=== PATIENT | male | born 1965 | race Caucasian/White ===

== ENCOUNTER 2021-07-16 11:41 | Inpatient (IN) | payer MEDICARE ==
[~2021-07-16 11:41] MED LIST: Iopamidol-370 76% 500 ML 1 ML ONE
[2021-07-16 13:04] LABS: #Lymphocytes 0.9 thou/uL (1.20-3.40); #Monocytes 0.4 thou/uL (0.11-0.59); #Neutrophils 11.4 thou/uL (1.40-6.50); %Basophils 0.1 % (0.0-1.0); %Eosinophils 0.3 % (0.0-10.0); %Lymphocytes 6.6 % (21.0-51.0); %Monocytes 3.3 % (0.0-10.0); %Neutrophils 89.6 % (42.0-75.0); Hemoglobin 9.8 g/dL (14.0-18.0); Mean Corpuscular HGB CONC 33.6 g/dL (32.0-36.0); Mean Corpuscular Hemoglobin 27.5 pg (27.0-31.0); Mean Corpuscular Volume 81.9 fL (78.0-98.0); Mean Platelet Volume 7.5 fL (7.4-10.4); Platelet Count 366 thou/uL (130-400); RBC Distribution Width 17.8 % (11.5-14.5); Red Blood Cell (RBC) Count 3.55 mill/uL (4.70-6.10); White Blood Cell (WBC) Count 12.7 thou/uL (4.8-10.8)
[2021-07-16 13:07] LABS: Actual Bicarbonate (HCO3v) 21 mEq/L (22-28); Analyzer IN Cardio ER; Base Excess -1.9 mEq/L (-2.0 to +3.0); Chloride (VBG) 93 mmol/L (98-106); Potassium (VBG) 4.66 mmol/L (3.70-5.30); Sodium 125.2 mmol/L (133-146); pH (venous) 7.46 (7.32-7.43)
[2021-07-16 13:33] LABS: ALT (SGPT) 19 U/L (8-55); AST (SGOT) 22 U/L (5-34); Albumin 3.1 g/dL (3.5-5.0); Alkaline Phosphatase 164 U/L (40-110); Anion Gap 18 mmol/L (10-20); BUN (Urea Nitrogen) 38 mg/dL (8.4-25.7); Bilirubin, Total 0.4 mg/dL (0.2-1.2); CK (CPK) 95 U/L (30-200); Calc. Creatinine Clearance 0 mL/min (70-130); Calcium 8.1 mg/dL (7.8-10.44); Carbon Dioxide 22 mmol/L (22-29); Chloride 93 mmol/L (98-107); Potassium 5.1 mmol/L (3.5-5.1); Protein, Total 6.1 g/dL (6.0-8.3); Sodium 128 mmol/L (136-145)
[2021-07-16 13:43] LABS: Glucose 756 mg/dL (70-105)
[2021-07-16] MEDS ORDERED: HumaLOG 300 UNITS/3 ML VIAL ONE (14:02)
[2021-07-16 14:13] LABS: Bacteria/HPF None Seen HPF (None Seen); Bilirubin Negative (Negative); Blood, Urine 1+ (Negative); Clarity Clear (Clear); Glucose, Urine (Dipstick) Greater than 1000 mg/dL (Negative); Ketone, Urine Negative (Negative); Leukocyte Negative Leu/uL (Negative); Nitrite Negative (Negative); Protein, Urine (Dipstick) 300 mg/dL (Neg-Trace); RBC/HPF 0-3 HPF (0-3); Specific Gravity, Urine 1.022 (1.002-1.036); Squamous Epithelial 0-3 HPF (0-3); Urobilinogen Normal mg/dL (Less than 2); pH, Urine 6.5 (5.0-9.0)
[2021-07-16 14:18] LABS: Amphetamine Not Detected (NotDetected); Barbiturates Screen Not Detected (NotDetected); Benzodiazepine Screen Not Detected (NotDetected); Cocaine Metabolite Screen Not Detected (NotDetected); Methadone Not Detected (NotDetected); Methamphetamine Not Detected (NotDetected); Opiate Screen Not Detected (NotDetected); Oxycodone Screen Not Detected (NotDetected); Phencyclidine (PCP) Not Detected (NotDetected); THC/Cannabinoid Screen Not Detected (NotDetected); Tricyclic Screen Not Detected (NotDetected)
[2021-07-16] MEDS ORDERED: hydrALAZINE 20 MG/ML VIAL ONE (14:36)
[2021-07-16] MEDS ORDERED: Nitroglycerin 2% Ointment 1 INCH/1 GM Packet ONE (14:36)
[2021-07-16 14:38] LABS: INR-International Normal Ratio 1.2; PTT 28.1 sec (22.9-36.1)
[2021-07-16 14:46] LABS: Acetaminophen Less than 6.0 mcg/mL (10.0-30.0); Alcohol Less than 10 mg/dL (Less than 10); Salicylate Less than 8.0 mg/dL (15.0-30.0)
[2021-07-16] MEDS ORDERED: Dextrose 5% in Water 1,000 ML IV PRN (14:52)
[2021-07-16] MEDS ORDERED: Dextrose 50% Abboject 50 ML SYRINGE SLOW IVP PRN (14:52)
[2021-07-16] MEDS ORDERED: Metoclopramide HCl 10 MG/2 ML VIAL IVP PRN (14:57)
[2021-07-16] MEDS ORDERED: HUMULIN R 100 UNITS in Sodium Chloride 0.9% 100 ML IVPB SCH (15:00)
[2021-07-16] MEDS ORDERED: VANCOMYCIN 1.25 GM/250 ML BAG 1.25 GM in Premix Bag 1 BAG IVPB SCH (16:00)
[2021-07-16 16:21] LABS: SARS-CoV-2 NAA Rapid Test DETECTED (NotDetected)
[2021-07-16] MEDS ORDERED: Albuterol 200 PUFF (6.7GM INHALER) INH PRN (16:57)
[2021-07-16] MEDS: Cefepime 1 GM in Sodium Chloride 0.9% 100 ML IVPB SCH (17:01)
[2021-07-16] MEDS: Heparin 5,000 UNITS/ML VIAL SC SCH ×2 (17:11→23:18)
[2021-07-16 18:04] LABS: Anion Gap 19 mmol/L (10-20); BUN (Urea Nitrogen) 41 mg/dL (8.4-25.7); Calc. Creatinine Clearance 17 mL/min (70-130); Calcium 8.6 mg/dL (7.8-10.44); Carbon Dioxide 21 mmol/L (22-29); Chloride 94 mmol/L (98-107); Potassium 4.6 mmol/L (3.5-5.1); Sodium 129 mmol/L (136-145)
[2021-07-16 18:05] LABS: Lipase 83 U/L (8-78)
[2021-07-16 18:07] LABS: Glucose 765 mg/dL (70-105)
[2021-07-16] MEDS: hydrALAZINE 20 MG/ML VIAL SLOW IVP PRN (18:31)
[2021-07-16] MEDS ORDERED: Insulin Regular 300 UNITS/3 ML VIAL SC SCH (19:30)
[2021-07-16] MEDS: Acetaminophen 650 MG Suppository PR PRN ×2 (19:35→23:35)
[2021-07-16 20:34] LABS: Lactic Acid 2.2 mmol/L (0.5-2.2)
[2021-07-16 20:38] LABS: Anion Gap 16 mmol/L (10-20); BUN (Urea Nitrogen) 43 mg/dL (8.4-25.7); Calc. Creatinine Clearance 17 mL/min (70-130); Calcium 8.7 mg/dL (7.8-10.44); Carbon Dioxide 23 mmol/L (22-29); Chloride 95 mmol/L (98-107); Potassium 4.3 mmol/L (3.5-5.1); Sodium 130 mmol/L (136-145)
[2021-07-16 20:42] LABS: Troponin I 0.061 ng/mL (< 0.028)
[2021-07-16 20:44] LABS: Glucose 619 mg/dL (70-105)
[2021-07-16 21:20] LABS: Glucose 415 mg/dL (70-105)
[2021-07-16] MEDS: Nitroglycerin 2% Ointment 1 INCH/1 GM Packet TOP SCH (21:58)
[2021-07-16] MEDS: Pantoprazole 40 MG VIAL IVP SCH (23:18)
[2021-07-17 01:55] LABS: HBSAg Index 0.25 S/CO (0-0.99); Hep B Surf Ag Non-Reactive S/CO (NonReactive)
[2021-07-17] MEDS: hydrALAZINE 20 MG/ML VIAL SLOW IVP PRN ×2 (04:10→13:34)
[2021-07-17 05:05] LABS: Anisocytosis SLIGHT = 6-15 cells (100X) (0-5/hpf); Band 4 % (5-11); Elliptocytes SLIGHT = 2-5 cells (100X) (0-1/hpf); Hemoglobin 8.7 g/dL (14.0-18.0); Lymphocytes 6 % (21-51); MDiff Complete? YES; Mean Corpuscular HGB CONC 33.9 g/dL (32.0-36.0); Mean Corpuscular Hemoglobin 27.5 pg (27.0-31.0); Mean Corpuscular Volume 81.1 fL (78.0-98.0); Mean Platelet Volume 7.5 fL (7.4-10.4); Monocytes 2 % (0-10); Neutrophil 88 % (42-75); Platelet Count 330 thou/uL (130-400); Platelet Morphology Comment Appears Adequate; Polychromasia SLIGHT = 2-3 cells (100X) (0-2/hpf); RBC Distribution Width 17.8 % (11.5-14.5); Red Blood Cell (RBC) Count 3.15 mill/uL (4.70-6.10); Schistocytes SLIGHT = 2-5 cells (100X) (0-1/hpf); Target Cells SLIGHT = 2-5 cells (100X) (0-1/hpf); White Blood Cell (WBC) Count 11.8 thou/uL (4.8-10.8)
[2021-07-17 05:08] LABS: Anion Gap 16 mmol/L (10-20); BUN (Urea Nitrogen) 27 mg/dL (8.4-25.7); Calc. Creatinine Clearance 22 mL/min (70-130); Calcium 8.9 mg/dL (7.8-10.44); Carbon Dioxide 26 mmol/L (22-29); Chloride 97 mmol/L (98-107); Glucose 146 mg/dL (70-105); Phosphorus 2.6 mg/dL (2.3-4.7); Potassium 3.4 mmol/L (3.5-5.1); Sodium 136 mmol/L (136-145)
[2021-07-17] MEDS: Nitroglycerin 2% Ointment 1 INCH/1 GM Packet TOP SCH ×3 (05:47→20:46)
[2021-07-17] MEDS: Acetaminophen 650 MG Suppository PR PRN (05:48)
[2021-07-17] MEDS ORDERED: Vancomycin 1 GM in Premix Bag 1 BAG IVPB SCH ×2 (08:00→10:00)
[2021-07-17] MEDS ORDERED: Vancomycin HCl 750 MG in Sodium Chloride 0.9% 250 ML 250 ML IVPB SCH (08:00)
[2021-07-17] MEDS ORDERED: HOLD VANCOMYCIN FOR LEVEL >20 FS SCH (08:00)
[2021-07-17] MEDS ORDERED: Vancomycin HCl 500 MG in Sodium Chloride 0.9% 100 ML IVPB SCH (08:00)
[2021-07-17] MEDS ORDERED: Vancomycin HCl 1.25 GM in Sodium Chloride 0.9% 250 ML 250 ML IVPB SCH (08:00)
[2021-07-17 08:59] LABS: Vancomycin, Random 9.5 ug/mL (See Comment)
[2021-07-17] MEDS: Heparin 5,000 UNITS/ML VIAL SC SCH ×3 (10:20→20:43)
[2021-07-17] MEDS: Lantus 1000 UNITS/10 ML VIAL SC SCH (10:21)
[2021-07-17] MEDS: HumaLOG 300 UNITS/3 ML VIAL SC PRN ×2 (13:34→17:53)
[2021-07-17] MEDS: Cefepime 1 GM in Sodium Chloride 0.9% 100 ML IVPB SCH ×2 (17:50→20:44)
[2021-07-17] MEDS: Pantoprazole 40 MG VIAL IVP SCH (20:44)
[2021-07-17] MEDS: Labetalol HCl 100 MG/20 ML VIAL SLOW IVP PRN (21:13)
[2021-07-18] MEDS: Labetalol HCl 100 MG/20 ML VIAL SLOW IVP PRN (00:47)
[2021-07-18 04:36] LABS: Anion Gap 18 mmol/L (10-20); BUN (Urea Nitrogen) 22 mg/dL (8.4-25.7); Calc. Creatinine Clearance 22 mL/min (70-130); Calcium 8.9 mg/dL (7.8-10.44); Carbon Dioxide 27 mmol/L (22-29); Chloride 98 mmol/L (98-107); Glucose 171 mg/dL (70-105); Potassium 3.5 mmol/L (3.5-5.1); Sodium 139 mmol/L (136-145)
[2021-07-18 04:38] LABS: Hemoglobin 9.7 g/dL (14.0-18.0); Hypochromia SLIGHT = 6-15 cells (100X) (0-5/hpf); Lymphocytes 10 % (21-51); MDiff Complete? YES; Mean Corpuscular HGB CONC 34.2 g/dL (32.0-36.0); Mean Corpuscular Volume 81.7 fL (78.0-98.0); Mean Platelet Volume 7.4 fL (7.4-10.4); Monocytes 17 % (0-10); Neutrophil 73 % (42-75); Platelet Count 337 thou/uL (130-400); Platelet Morphology Comment Appears Adequate; RBC Distribution Width 18.6 % (11.5-14.5); Red Blood Cell (RBC) Count 3.46 mill/uL (4.70-6.10); White Blood Cell (WBC) Count 11.8 thou/uL (4.8-10.8)
[2021-07-18] MEDS: Nitroglycerin 2% Ointment 1 INCH/1 GM Packet TOP SCH ×2 (05:54→17:35)
[2021-07-18] MEDS: HumaLOG 300 UNITS/3 ML VIAL SC PRN ×2 (05:56→17:12)
[2021-07-18] MEDS: Sevelamer Carbonate 800 MG TAB PO SCH ×3 (08:55→17:12)
[2021-07-18] MEDS: levETIRAcetam 500 MG TAB PO SCH ×2 (08:55→21:12)
[2021-07-18] MEDS: Lantus 1000 UNITS/10 ML VIAL SC SCH (08:56)
[2021-07-18] MEDS: Heparin 5,000 UNITS/ML VIAL SC SCH ×3 (08:56→21:12)
[2021-07-18] MEDS: Atorvastatin Calcium 40 MG TAB PO SCH (21:12)
[2021-07-18] MEDS: Cefepime 1 GM in Sodium Chloride 0.9% 100 ML IVPB SCH (21:12)
[2021-07-19 04:27] LABS: #Eosinphils 0.2 thou/uL (0.0-0.7); #Lymphocytes 1.3 thou/uL (1.20-3.40); #Monocytes 0.7 thou/uL (0.11-0.59); #Neutrophils 4.9 thou/uL (1.40-6.50); %Basophils 0.5 % (0.0-1.0); %Eosinophils 2.2 % (0.0-10.0); %Monocytes 9.5 % (0.0-10.0); Hemoglobin 9.9 g/dL (14.0-18.0); Mean Corpuscular HGB CONC 33.5 g/dL (32.0-36.0); Mean Corpuscular Hemoglobin 27.6 pg (27.0-31.0); Mean Corpuscular Volume 82.4 fL (78.0-98.0); Mean Platelet Volume 7.6 fL (7.4-10.4); Platelet Count 290 thou/uL (130-400); RBC Distribution Width 18.2 % (11.5-14.5); Red Blood Cell (RBC) Count 3.58 mill/uL (4.70-6.10); White Blood Cell (WBC) Count 7.1 thou/uL (4.8-10.8)
[2021-07-19 04:49] LABS: Anion Gap 16 mmol/L (10-20); BUN (Urea Nitrogen) 37 mg/dL (8.4-25.7); Calc. Creatinine Clearance 15 mL/min (70-130); Calcium 8.1 mg/dL (7.8-10.44); Carbon Dioxide 27 mmol/L (22-29); Chloride 98 mmol/L (98-107); Glucose 81 mg/dL (70-105); Potassium 3.6 mmol/L (3.5-5.1); Sodium 137 mmol/L (136-145)
[2021-07-19] MEDS ORDERED: FLU VACC QS2021-22(6MOS UP)/PF 60 MCG/0.5 ML SYRINGE IM ONE (09:00)
[2021-07-19] MEDS ORDERED: Prevnar 13-Val Conj/PF 0.5 ML SYRINGE IM ONE (09:00)
[2021-07-19] MEDS: Sevelamer Carbonate 800 MG TAB PO SCH ×3 (09:07→15:58)
[2021-07-19] MEDS: levETIRAcetam 500 MG TAB PO SCH ×2 (09:07→22:17)
[2021-07-19] MEDS: Heparin 5,000 UNITS/ML VIAL SC SCH ×3 (09:07→22:17)
[2021-07-19] MEDS: Lantus 1000 UNITS/10 ML VIAL SC SCH (09:07)
[2021-07-19 09:11] LABS: Vancomycin, Random 9.8 ug/mL (See Comment)
[2021-07-19] MEDS ORDERED: Epoetin (ESRD) 20,000 UNITS/ML SC SCH (09:15)
[2021-07-19] MEDS ORDERED: Vancomycin 1 GM in Premix Bag 1 BAG IVPB SCH (09:45)
[2021-07-19] MEDS ORDERED: Vancomycin HCl 1.25 GM in Sodium Chloride 0.9% 250 ML 250 ML IVPB SCH (09:45)
[2021-07-19] MEDS ORDERED: Vancomycin HCl 1.5 GM in Sodium Chloride 0.9% 250 ML 300 ML IVPB SCH (09:45)
[2021-07-19] MEDS ORDERED: HOLD VANCOMYCIN FOR LEVEL >20 FS SCH (09:45)
[2021-07-19] MEDS ORDERED: Vancomycin HCl 750 MG in Sodium Chloride 0.9% 250 ML 250 ML IVPB SCH (09:45)
[2021-07-19] MEDS ORDERED: VANCOMYCIN 1.25 GM/250 ML BAG 1.25 GM in Premix Bag 1 BAG IVPB SCH (10:00)
[2021-07-19] MEDS: HumaLOG 300 UNITS/3 ML VIAL SC PRN ×2 (11:21→15:57)
[2021-07-19] MEDS: EPOETIN ALFA-EPBX (ESRD) 4,000 UNIT/ML VIAL SC SCH (11:21)
[2021-07-19] MEDS: Atorvastatin Calcium 40 MG TAB PO SCH (22:17)
[2021-07-19] MEDS: Cefepime 1 GM in Sodium Chloride 0.9% 100 ML IVPB SCH (22:24)
[2021-07-20] MEDS: levETIRAcetam 500 MG TAB PO SCH ×2 (08:57→21:58)
[2021-07-20] MEDS: Sevelamer Carbonate 800 MG TAB PO SCH ×3 (08:57→17:54)
[2021-07-20] MEDS: Heparin 5,000 UNITS/ML VIAL SC SCH ×3 (08:58→21:58)
[2021-07-20] MEDS: Lantus 1000 UNITS/10 ML VIAL SC SCH (09:20)
[2021-07-20] MEDS: HumaLOG 300 UNITS/3 ML VIAL SC PRN ×2 (12:08→22:00)
[2021-07-20] MEDS: Atorvastatin Calcium 40 MG TAB PO SCH (21:58)
[2021-07-21] MEDS: Lantus 1000 UNITS/10 ML VIAL SC SCH (09:03)
[2021-07-21] MEDS: Heparin 5,000 UNITS/ML VIAL SC SCH ×3 (09:03→20:29)
[2021-07-21] MEDS: levETIRAcetam 500 MG TAB PO SCH ×2 (09:03→20:27)
[2021-07-21] MEDS: Cefdinir 300 MG CAP PO SCH (09:03)
[2021-07-21] MEDS: Sevelamer Carbonate 800 MG TAB PO SCH ×3 (09:03→17:47)
[2021-07-21] MEDS: HumaLOG 300 UNITS/3 ML VIAL SC PRN ×2 (16:13→23:05)
[2021-07-21] MEDS: Atorvastatin Calcium 40 MG TAB PO SCH (20:27)
[2021-07-22] MEDS: Heparin 5,000 UNITS/ML VIAL SC SCH ×3 (08:44→19:37)
[2021-07-22] MEDS: Lantus 1000 UNITS/10 ML VIAL SC SCH (08:45)
[2021-07-22] MEDS: Sevelamer Carbonate 800 MG TAB PO SCH ×3 (08:45→16:09)
[2021-07-22] MEDS: Cefdinir 300 MG CAP PO SCH (08:45)
[2021-07-22] MEDS: levETIRAcetam 500 MG TAB PO SCH ×2 (08:46→19:37)
[2021-07-22] MEDS: HumaLOG 300 UNITS/3 ML VIAL SC PRN ×2 (11:48→16:37)
[2021-07-22] MEDS: Atorvastatin Calcium 40 MG TAB PO SCH (19:36)
[2021-07-23] MEDS: Cefdinir 300 MG CAP PO SCH (08:45)
[2021-07-23] MEDS: Sevelamer Carbonate 800 MG TAB PO SCH ×3 (08:46→16:34)
[2021-07-23] MEDS: levETIRAcetam 500 MG TAB PO SCH ×2 (08:46→20:06)
[2021-07-23] MEDS: Lantus 1000 UNITS/10 ML VIAL SC SCH (08:46)
[2021-07-23] MEDS: Heparin 5,000 UNITS/ML VIAL SC SCH ×3 (08:46→20:06)
[2021-07-23] MEDS: HumaLOG 300 UNITS/3 ML VIAL SC PRN (11:30)
[2021-07-23] MEDS ORDERED: Simethicone Chewable 80 MG TAB PO PRN (18:48)
[2021-07-23] MEDS: Atorvastatin Calcium 40 MG TAB PO SCH (20:06)
[2021-07-24] MEDS: Acetaminophen 325 MG TAB PO PRN (02:05)
[2021-07-24] MEDS: Calcium Carbonate 500 MG ChewTAB PO PRN (02:05)
[2021-07-24] MEDS: levETIRAcetam 500 MG TAB PO SCH ×2 (08:16→19:40)
[2021-07-24] MEDS: Cefdinir 300 MG CAP PO SCH (08:17)
[2021-07-24] MEDS: Sevelamer Carbonate 800 MG TAB PO SCH ×3 (08:17→16:57)
[2021-07-24] MEDS: Amlodipine 5 MG TAB PO SCH (08:17)
[2021-07-24] MEDS: Lantus 1000 UNITS/10 ML VIAL SC SCH (08:18)
[2021-07-24] MEDS: Heparin 5,000 UNITS/ML VIAL SC SCH ×3 (08:18→19:40)
[2021-07-24] MEDS: Atorvastatin Calcium 40 MG TAB PO SCH (19:40)
[2021-07-24] MEDS: HumaLOG 300 UNITS/3 ML VIAL SC PRN (19:41)
[2021-07-24] MEDS ORDERED: Loratadine 10 MG TAB PO SCH (20:29)
[2021-07-25] MEDS: levETIRAcetam 500 MG TAB PO SCH ×2 (08:15→20:24)
[2021-07-25] MEDS: Cefdinir 300 MG CAP PO SCH (08:15)
[2021-07-25] MEDS: Amlodipine 5 MG TAB PO SCH (08:15)
[2021-07-25] MEDS: Lantus 1000 UNITS/10 ML VIAL SC SCH (08:16)
[2021-07-25] MEDS: Sevelamer Carbonate 800 MG TAB PO SCH ×3 (08:16→18:00)
[2021-07-25] MEDS: Heparin 5,000 UNITS/ML VIAL SC SCH ×3 (08:16→20:25)
[2021-07-25 18:00] LABS: Anion Gap 17 mmol/L (10-20); BUN (Urea Nitrogen) 44 mg/dL (8.4-25.7); Calc. Creatinine Clearance 13 mL/min (70-130); Carbon Dioxide 25 mmol/L (22-29); Chloride 93 mmol/L (98-107); Glucose 255 mg/dL (70-105); Potassium 4.9 mmol/L (3.5-5.1); Sodium 130 mmol/L (136-145)
[2021-07-25 18:06] LABS: Troponin I 0.013 ng/mL (< 0.028)
[2021-07-25 18:20] LABS: Anisocytosis SLIGHT = 6-15 cells (100X) (0-5/hpf); Eosinophils 5 % (0-10); Hemoglobin 10.6 g/dL (14.0-18.0); Hypochromia SLIGHT = 6-15 cells (100X) (0-5/hpf); Lymphocytes 24 % (21-51); MDiff Complete? YES; Mean Corpuscular HGB CONC 33.8 g/dL (32.0-36.0); Mean Corpuscular Hemoglobin 28.2 pg (27.0-31.0); Mean Corpuscular Volume 83.3 fL (78.0-98.0); Mean Platelet Volume 7.5 fL (7.4-10.4); Monocytes 11 % (0-10); Neutrophil 58 % (42-75); Ovalocytes SLIGHT = 2-5 cells (100X) (0-1/hpf); Platelet Count 329 thou/uL (130-400); Platelet Morphology Comment Appears Adequate; Polychromasia SLIGHT = 2-3 cells (100X) (0-2/hpf); Red Blood Cell (RBC) Count 3.74 mill/uL (4.70-6.10); Tear Drops SLIGHT = 2-5 cells (100X) (0-1/hpf); White Blood Cell (WBC) Count 5.2 thou/uL (4.8-10.8)
[2021-07-25] MEDS: Atorvastatin Calcium 40 MG TAB PO SCH (20:24)
[2021-07-25 20:56] LABS: Troponin I 0.032 ng/mL (< 0.028)
[2021-07-25] MEDS: HumaLOG 300 UNITS/3 ML VIAL SC PRN (22:04)
[2021-07-26 07:18] LABS: Troponin I 0.023 ng/mL (< 0.028)
[2021-07-26 10:09] VITALS: BMI 25.6
[2021-07-26] MEDS: Cefdinir 300 MG CAP PO SCH (13:56)
[2021-07-26] MEDS: levETIRAcetam 500 MG TAB PO SCH ×2 (13:56→20:19)
[2021-07-26] MEDS: Amlodipine 5 MG TAB PO SCH (13:56)
[2021-07-26] MEDS: Acetaminophen 325 MG TAB PO PRN (13:57)
[2021-07-26] MEDS: Lantus 1000 UNITS/10 ML VIAL SC SCH (13:57)
[2021-07-26] MEDS: Heparin 5,000 UNITS/ML VIAL SC SCH ×3 (13:57→20:20)
[2021-07-26] MEDS: Sevelamer Carbonate 800 MG TAB PO SCH ×3 (13:57→17:34)
[2021-07-26] MEDS: EPOETIN ALFA-EPBX (ESRD) 4,000 UNIT/ML VIAL SC SCH (16:41)
[2021-07-26] MEDS: HumaLOG 300 UNITS/3 ML VIAL SC PRN ×2 (16:42→20:25)
[2021-07-26 19:54] VITALS: BP 129/82; TEMP 98.3
[2021-07-26] MEDS: Calcium Carbonate 500 MG ChewTAB PO PRN (20:18)
[2021-07-26] MEDS: Atorvastatin Calcium 40 MG TAB PO SCH (20:19)
== END 2021-07-26 21:20 | DRG 177 ==
LOC: ERS 11:41 → EDBD 11:41 → IMCU/EMU 14:22 → T4-A 07-19 19:23 → T4-B 07-19 19:25
PROVIDERS: ADMIT Family Medicine; ATTEND Internal Medicine
PROC: 8E0ZXY6 Isolation (ICD-10-PCS; principal; 2021-07-16)
PROC: 5A1D70Z Performance of Urinary Filtration, Intermittent, Less than 6 Hours Per Day (ICD-10-PCS; 2021-07-16)
DX: U07.1 COVID-19 (principal); J96.01 Acute respiratory failure with hypoxia; N18.6 End stage renal disease; G93.41 Metabolic encephalopathy; J12.82 Pneumonia due to coronavirus disease 2019; E11.00 Type 2 diabetes mellitus with hyperosmolarity without nonketotic hyperglycemic-hyperosmolar coma (NKHHC); I13.2 Hypertensive heart and chronic kidney disease with heart failure and with stage 5 chronic kidney disease, or end stage renal disease; I69.354 Hemiplegia and hemiparesis following cerebral infarction affecting left non-dominant side; E11.22 Type 2 diabetes mellitus with diabetic chronic kidney disease; R94.31 Abnormal electrocardiogram [ECG] [EKG]; E78.5 Hyperlipidemia, unspecified; I16.0 Hypertensive urgency; E11.65 Type 2 diabetes mellitus with hyperglycemia; D63.1 Anemia in chronic kidney disease; E88.09 Other disorders of plasma-protein metabolism, not elsewhere classified; G40.909 Epilepsy, unspecified, not intractable, without status epilepticus; F39 Unspecified mood [affective] disorder; I50.9 Heart failure, unspecified; Z99.2 Dependence on renal dialysis; Z28.21 Immunization not carried out because of patient refusal; Z79.899 Other long term (current) drug therapy; Z79.4 Long term (current) use of insulin
CPT/HCPCS: 0240U; 36415; 36416; 70450; 70496; 70498; 70551; 71045; 80048; 80053; 80202; 80306; 80307; 81003; 81015; 82010; 82140; 82550; 82805; 83605; 83690; 83880; 83970; 84100; 84484; 85025; 85610; 85730; 87040; 87340; 87804; 90935; 93005; 93010; 93306; 96374; C9113; G0257; J0360; J0692; J1644; J1815; J3370; J3490; Q5105; Q9967